=== PATIENT | male | born 1985 | race Caucasian/White ===

== ENCOUNTER 2020-04-24 19:17 | Observation (INO) | payer BC ==
[2020-04-24] VITALS (13 sets, daily range): BP systolic 107–144; BP diastolic 53–84
[~2020-04-24] VITALS: Ht 177.8 cm; Wt 98.2 kg
[2020-04-24 20:08] LABS: BASOPHILS % (AUTO) 0.7 % (0.0-5.0); EOSINOPHILS % (AUTO) 5.5 % (0.0-8.0); HEMATOCRIT 42.9 % (42-54); LYMPHOCYTES % (AUTO) 31.8 % (21.0-51.0); MEAN CORPUSCULAR HEMOGLOBIN 28.2 pg (27.0-33.0); MONOCYTES % (AUTO) 8.4 % (3.0-13.0); NEUTROPHILS % (AUTO) 53.3 % (40.0-77.0); PLATELET COUNT (AUTO) 234 K/uL (130-400); RED BLOOD CELL COUNT(AUTO) 5.17 MIL/uL (4.50-6.20); RED CELL DISTRIBUTION WIDTH 12.8 % (11.0-15.5); WHITE BLOOD COUNT (AUTO) 5.8 K/uL (4.8-10.8)
[2020-04-24 20:33] LABS: CREATININE 1.2 mg/dL (0.5-1.5); POTASSIUM 4.3 mmol/L (3.5-5.1)
[2020-04-24 20:37] LABS: INR 0.93 (0.85-1.15); PARTIAL THROMBOPLASTIN TIME 25.2 SEC (26.3-35.5); PROTHROMBIN TIME 10.1 SEC (9.6-11.6)
[2020-04-24 20:52] LABS: ALBUMIN 4.6 g/dL (3.5-5.0); BILIRUBIN,TOTAL 0.3 mg/dL (0.2-1.0); TOTAL PROTEIN, SERUM 8.1 g/dL (6.0-8.3)
[2020-04-24] MEDS ORDERED: PROPOFOL 10 MG/ML 20ML VIAL IV ONE (21:16)
[2020-04-24] MEDS ORDERED: SUCCINYLCHOLINE 200MG/10ML SYR ONE (21:16)
[2020-04-24] MEDS ORDERED: LIDOCAINE HCL 1% 20 ML VIAL ONE (21:16)
[2020-04-24] MEDS ORDERED: MIDAZOLAM HCL 1 MG/ML 2ML VIAL ONE (21:17)
[2020-04-24] MEDS ORDERED: PROP20TA7 PO (23:39)
[2020-04-24] MEDS ORDERED: ESCI20TA36 PO (23:39)
--- NOTE | 2020-04-24 23:40 | NUR ---
ADMISSION PT ADMITTED TO 329, AAOX3 AND CLAIMS OF HEAD AND THROAT PAINS. PT IS IMMEDIATE POST OP FROM GI LAB. ADMISSION CARE DONE. ADMISSION DATA BASE COMPLETED. MAUREEN CEE NP COLLAR SEWER FOR HOSPITALIST, VIA ANSWERING SERVICE AND REFERRED PT'S COMPLAINTS. NEW MED ORDER RECEIVED. WILL MEDICATE PT. MOLD PREPARER CLAIMS SHE IS ON HER WAY TO SEE PT. ORIENTED PT TO ROOM AND UNIT. IN FOR MORE CARE AND MANAGEMENT. Addendum: 04/25/20 at 0100 by MAGDALENA ALDRICH RN RN Amended: Links added.
[2020-04-24] MEDS ORDERED: KETOROLAC TROMETHAMINE 15MG/ML ONE (23:57)
[2020-04-25] VITALS (8 sets, daily range): BP systolic 106–130; BP diastolic 62–84
[2020-04-25] MEDS ORDERED: KETOROLAC TROMETHAMINE 15MG/ML IV PRN
[2020-04-25] MEDS ORDERED: ONDANSETRON HCL 4 MG/2 ML VIAL IV PRN (00:15)
[2020-04-25] MEDS ORDERED: SODIUM CHLORIDE 0.9% 1000ML 1,000 ML IV SCH (00:15)
--- NOTE | 2020-04-25 02:00 | NUR ---
ROUNDS PT FAIRLY ASLEEP WITH RESPIRATIONS EVEN AND UNLABORED. NO NOTED DISTRESS. KEPT UNDISTURBED FOR NOW WILL MONITOR PT. KEPT NPO FOR ESOPHAGRAM TODAY.
--- NOTE | 2020-04-25 05:30 | NUR ---
ROUNDS PT IS RESTING WELL. NO CONCERNS VERBALIZED. KEPT COMFORTABLE IN BED. FOR MORE CARE AND MANAGEMENT.
[2020-04-25 05:54] LABS: BASOPHILS % (AUTO) 0.3 % (0.0-5.0); EOSINOPHILS % (AUTO) 4.5 % (0.0-8.0); HEMATOCRIT 38.7 % (42-54); LYMPHOCYTES % (AUTO) 33.3 % (21.0-51.0); MEAN CORPUSCULAR HEMOGLOBIN 28.2 pg (27.0-33.0); MEAN CORPUSCULAR HGB CONC 33.1 g/dL (32.0-36.0); MEAN CORPUSCULAR VOLUME 85.2 fL (79-99); NEUTROPHILS % (AUTO) 51.8 % (40.0-77.0); PLATELET COUNT (AUTO) 197 K/uL (130-400); RED BLOOD CELL COUNT(AUTO) 4.54 MIL/uL (4.50-6.20); RED CELL DISTRIBUTION WIDTH 12.8 % (11.0-15.5); WHITE BLOOD COUNT (AUTO) 6.7 K/uL (4.8-10.8)
[2020-04-25 06:16] LABS: ALBUMIN 3.6 g/dL (3.5-5.0); BILIRUBIN,TOTAL 0.3 mg/dL (0.2-1.0); CREATININE 1.3 mg/dL (0.5-1.5); POTASSIUM 3.9 mmol/L (3.5-5.1); TOTAL PROTEIN, SERUM 6.4 g/dL (6.0-8.3)
[2020-04-25] MEDS ORDERED: FAMOTIDINE/PF 20 MG/2 ML VIAL IV SCH (09:00)
--- NOTE | 2020-04-25 10:45 | NUR ---
MET WITH PATIENT FOR DC PLANNING- PT AAOX3, DAVID, ACTIVE, EMPOLOYED, VACATIONING AT [facility] TO PROVIDE TRANSPORT EXPECTING DISCHARGE AFTER ESOPHAGRAM. CM OT FOLLOW , NO DC NEEDS EXPECTED Addendum: 04/25/20 at 1826 by BEATRIS LOZA RN CM Amended: Links added.
--- NOTE | 2020-04-25 10:55 | NUR ---
TOLERATING SOFT FOOD DIET PATIENT ATE SOFT FOOD TRAY AND REPORTS NO DISCOMFORTS AND NO ISSUES WITH SWALLOWING. PATIENT STATES HE FEELS MUCH BETTER AND READY TO GO HOME TODAY.
== END 2020-04-25 10:50 | disposition home or self-care (01) ==
LOC: EDH 19:17 → EDHIP 22:16 → 3AH 23:14
PROVIDERS: ADMIT Internal Medicine; ATTEND Internal Medicine
DX: K22.2 Esophageal obstruction (principal); F41.9 Anxiety disorder, unspecified; F32.9 Major depressive disorder, single episode, unspecified; Z72.0 Tobacco use
CPT/HCPCS: 36415 ×2; 43202; 74220; 80053 ×2; 84484; 85025 ×2; 85610; 85730; 93005; 96374; 99284; A4606; A4657 ×2; G0378 ×3; J0330; J1885; J2250; J2704; J3490